=== PATIENT | female | born 1945 | race Asian ===

== ENCOUNTER 2022-03-03 08:40 | Day surgery (SDC) | payer MEDICARE, OTHER ==
[~2022-03-03] VITALS: Ht 152.4 cm; Wt 50.3 kg
== END 2022-03-03 11:26 | disposition home or self-care (01) ==
LOC: ORSCSDS 08:40
PROVIDERS: Internal Medicine Gastroenterology
PROC: 0DBL8ZX Excision of Transverse Colon, Via Natural or Artificial Opening Endoscopic, Diagnostic (ICD-10-PCS; principal; 2022-03-03 10:15)
DX: Z12.11 Encounter for screening for malignant neoplasm of colon (principal); Z86.010 Personal history of colon polyps; D12.3 Benign neoplasm of transverse colon; K57.50 Diverticulosis of both small and large intestine without perforation or abscess without bleeding; K64.8 Other hemorrhoids; K64.4 Residual hemorrhoidal skin tags
CPT/HCPCS: 88305; J2704; J7120